=== PATIENT | female | born 1945 | race Caucasian/White ===

== ENCOUNTER 2024-06-22 12:41 | Emergency (ER) | payer MEDICARE, BC, SELFPAY ==
[2024-06-22 12:48] VITALS: BP 140/73
--- NOTE | 2024-06-22 15:32 | CON.NEURO ---
Neuro Assessment/Plan
Assessment
Chronic onset of dysphagia with speech change.
Acute onset of neck pain secondary to subjective neck weakness.
Abnormalities on examination of bilateral tongue fasciculations as well as proximal hyperreflexia, despite preserved strength suggest with its chronicity and reported normal routine EMG study, reported normal acetylcholine receptor antibodies,
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 Differential diagnosis would include spinocerebellar atrophy, unique metabolic disturbances including copper deposition.
Plan
I will facilitate the patient being evaluated by a neuromuscular subspecialist at an academic center on an urgent basis
Patient will require an EMG study of the head, specifically the tongue to determine if the likelihood of a bulbar form of ALS is present
Check blood work for potential metabolic mimics, unlikely
Patient has already been in contact with the speech therapist and I encouraged them to contact that person again for additional mechanics to facilitate swallowing
Check CT of neck to ensure there is no mimics producing the patient's subacute neck discomfort
Will follow as needed
Consultation
Order
Date of Consultation: 06/22/24
Requesting Provider: Emergency department provider
Reason for Consult: Slurred speech
Subjective/Objective
Subjective Data
Date of Service: June 22, 2024
Right-Handed
July 2022 have severe upper respiratory infection infection which lead to vocal loss.
Developed cough intractable 1 year ago (06/2023) then swallowing difficulty as well as chewing difficulty.
Patient presented to a [facility] welfare eligibility interviewer in March 2024 for reporting approximately 6 to 12 (-03/2023) months of a change in voice with slower speech and slurred speech. The patient also reported difficulty with dysphagia during
that timeframe. The patient described also experiencing shortness of breath with activity and a chronic cough. During his examination, the patient was found to have tongue fasciculations.
Speech changes started in 09/2023.
Saw local neurologist who performed blood work and EMG which were 'normal.'
Used pyridostigmine without benefit, had side-effects including leg cramps. Glycopyrrolate previously.
Then to ENT physician who was unable to find a primary neck issue producing patient's symptoms
Unable to tolerate MRI of brain ordered by ENT.
Now having neck issues started in 06/17/2024 posteriorly radiating to tops of head, equally bilaterally posteriorly. In [place], underwent two evaluations in local emergency departments, given ABX and pain-killers. As the patient did not have
adequate control of her discomfort, they returned to [place].
Developed difficulty with lifting arms to comb hair (in the neck) started with neck pain.
Lip twitching started 1 day prior to ED presentation.
Objective Data
Vital Signs
Temp Pulse Resp BP Pulse Ox
36.7 C 100 16 140/73 98
06/22/24 12:48 06/22/24 12:48 06/22/24 12:48 06/22/24 12:48 06/22/24 12:48
Patient Allergies
No Known Allergies Allergy (Verified 06/22/24 12:55)
Review of Systems
-
History Source: Patient and Family
All other systems: Reviewed and negative
EENT: Swallowing Difficulty and Other (chewing is an issue); Negative Blurry Vision
Respiratory: Trouble Breathing
Cardiac: Negative Chest Pain
Abdomen/GI: Negative Incontinence of Stool
Genitourinary: Negative Incontinence
Musculoskeletal: Neck Pain (constant); Negative Back Pain
Neuro: Headache; Negative Dizzy
Physical Exam
-
General: No Apparent Distress and Appears Stated Age
Eyes: OU Absent Papilledema, Round OU, Lafe Conjunctivae and No Ptosis
HEENT: Anicteric and Moist Mucous Membranes
Neck: Full Range of Motion
Respiratory: No Dyspnea
Cardiac: No JVD
GI: Non-distended
Skin: Unremarkable
Extremities: No Clubbing, No Cyanosis and No Edema
Psych: Intact Judgement/Insight
Extended Neurological Exam
Mood & Affect: Mood Unremarkable and Affect Unremarkable
Attention Span & Concentration: Awake, Alert, Interactive and No Difficulty with 2 Step Request
Memory: Unremarkable
Tremor: Hand Tremor Absent and Head Tremor Absent
Speech: Quantity Unremarkable and Other (Nasal); Negative Quality Unremarkable
Cranial Nerve II: Left Eye: Pupillary Reactivity Unremarkable, Pupillary Size Unremarkable and Visual Nino Intact
Cranial Nerve II: Right Eye: Pupillary Reactivity Unremarkable, Pupillary Size Unremarkable and Visual Nino Intact
Cranial Nerves III, IV, : Extraocular Movement: Extraocular Movement Full in all Directions
Cranial Nerve V: Facial Sensation: Facial Sensation Unremarkable to Cold
Cranial Nerve VII: Facial Symmetry: Normal Facial Symmetry
Cranial Nerve VIII: Hearing: Unremarkable Hearing to Normal Conversational Volume
Cranial Nerves IX, X: Palate Movement: Palate Elevation Symmetric
Cranial Nerve XI: Shoulder Shrug: Unremarkable
Cranial Nerve XII: Tongue Protusion: Midline and Other (Frequent multifocal brief tongue fasciculations noted)
Muscle Strength, Overall: Full Throughout and Other (Neck flexor and extensor strength testing mildly limited by pain, may be reduced with regards to extension mildly)
Muscle Bulk & Tone: Bulk Unremarkable and Tone Unremarkable
Pronator Drift: No Drift in Upper Extremities
Deep Tendon Reflexes: Other (Increased in bilateral upper extremities proximally greater than distally; otherwise absent; jaw jerk was not clearly hyperreflexic)
Cold Sensation: Reduced Mildly Distally
Vibration Sensation: Absent Distally
Touch Sensation: Unremarkable
Coordination: [id number] Testing Unremarkable
Babinski Sign: Absent Bilaterally
Data Reviewed
-
Labs: Ordered and Report Reviewed
Reviewed with: Physician, Patient and Family
Old Records: Summarized
Past History
Past History
ED Past Medical History: HTN, Hypercholesterolemia and Other (Dyspnea on exertion)
ED Past Surgical History: Orthopedic (Left knee TKR) and Other (Bilateral cataract extractions)
Social History
Tobacco: Non-smoker
Alcohol: None
Family History
Family History: Other (Reviewed and noncontributory)
[2024-06-22 15:43] VITALS: BMI 31.9
[2024-06-22 15:45] VITALS: BP 137/75
[2024-06-22 15:54] LABS: Hematocrit 37.2 % (37.0-47.0); Hemoglobin 12.8 g/dL (12.0-16.0); Mean Corp Hgb Conc. 34.4 g/dL (33.0-37.0); Mean Corpuscular Hgb 31.1 pg (27.0-31.0); Mean Corpuscular Volume 90.5 fL (81.0-99.0); Mean Platelet Volume 8.8 fL (7.4-10.4); Platelet Count 301 10^3/uL (130-400); Red Blood Cell Count 4.11 10^6/uL (4.20-5.40); Red Cell Dist. Width 12.6 % (11.5-14.5); White Blood Cell Count 8.8 10^3/uL (4.8-10.8)
[2024-06-22 16:00] VITALS: BP 139/92
[2024-06-22 16:09] LABS: ALT (SGPT) 24 U/L (0-35); AST (SGOT) 25 U/L (14-36); Albumin 3.8 g/dl (3.5-5.0); Alkaline Phosphatase 124 U/L (38-126); Blood Urea Nitrogen 14 mg/dl (7-17); Calcium 9.3 mg/dl (8.4-10.2); Carbon Dioxide 32 mmol/L (22-30); Chloride 94 mmol/L (98-107); Estimated Creatinine Clearance 52 ml/min; Glucose 113 mg/dl (70-99); Magnesium 2.2 mg/dl (1.6-2.3); Potassium 3.5 mmol/L (3.5-5.1); Sodium 133 mmol/L (135-145); Total Bilirubin 0.7 mg/dl (0.2-1.3); Total Protein 7.1 g/dl (6.3-8.2); eGFR > 60.00
--- NOTE | 2024-06-22 16:10 | ED.GENMED ---
History of Present Illness
General
Chief Complaint: Musculo-Skeletal Complaint
Source: patient and family
Exam Limitations: none
Time Seen by Provider: 06/22/24 14:46
Nursing documentation reviewed up to this point in time: agreed with
History of Present Illness
History of Present Illness:
Patient with history of hypertension and hypercholesterolemia, presents to ED secondary to 5-day history of atraumatic neck pain, radiating up to her head. In addition, patient reports worsening slurred speech and difficulty swallowing, but she has
been experience for over 1 year. Patient has been evaluated by an outpatient neurologist with diagnosis of possible myasthenia gravis. Patient was prescribed medications by her neurologist, which she had to discontinue due to side effects. Denies
blurry vision. Denies dizziness. Denies loss of sensation or difficulty with ambulation. However, patient does have difficulty raising her arm above her shoulder due to pain.
Past History
Past History
ED Past Medical History: HTN, Hypercholesterolemia and Other (Dyspnea on exertion)
ED Past Surgical History: Orthopedic (Left knee TKR) and Other (Bilateral cataract extractions)
Social History
Tobacco: Non-smoker
Alcohol: None
Family History
Family History: Other (Reviewed and noncontributory)
Review of Systems
Review of Systems
Allergies reviewed?: Yes
All Other Systems: ROS reviewed and negative except as documented in HPI and ROS
Constitutional: Reports no symptoms
EENT: Reports no symptoms
Respiratory: Reports no symptoms
Cardiac: Reports no symptoms
ABD/GI: Reports no symptoms
Musculoskeletal: Reports neck pain
Skin: Reports no symptoms
Neurological: Reports headache and other (Slurred speech and difficulty swallowing)
Phy Exam
Physical Exam
Physical Exam:
Physical Exam
General: no apparent distress, not acutely ill. afebrile
Head: nc/at. eomi
Neck: supple. no meningeal signs.
Heart: s1/s2 regular rate and rhythm, no murmur. equal radial pulses.
Lungs: no acute respiratory distress. clear bilaterally
Abdomen: normal bowel sounds. not tender.
Neuro: alert and oriented x 3. no focal neurological deficits. slurred speech noted.
Skin: no rash
Psychiatric: well kept. interactive and cooperative
Extremities: no edema. no calf tenderness.
Course
Orders/Labs/Results
Orders:
Orders
06/22/24 15:39
Electrocardiogram (*1) Urgent
Reason for Study: TIA/Stroke
EKG- Treatment ONCE
06/22/24 15:42
C-Reactive Protein Urgent
Comment: ADD ON
Complete Blood Count/No Diff Urgent
Comprehensive Metabolic Panel Urgent
Erythrocyte Sed Rate Urgent
Comment: ADD ON
Magnesium Urgent
TSH Reflex To Free T4 Urgent
Comment: ADD ON
Vitamin B12 Urgent
Comment: ADD ON
06/22/24 16:30
Ketorolac [Toradol] 15 mg IV NOW STA
06/22/24 16:36
Add On- LAB Urgent
Tests Added?: zinc, vit B12, TSH free to T4, erthrocyte sed rate, copper, CRP
06/22/24 16:37
Add On- LAB Urgent
Tests Added?: Sadia IgG reflex to hep-2 (s)
06/22/24 16:43
CT Neck W/o Iv Contrast Routine
Comment:
Reason For Exam: Acute onset severe neck pain posteriorly
06/22/24 16:55
Ondansetron Injectable [Zofran] 4 mg IV NOW STA
06/22/24 17:24
Copper, Serum [S] Routine
Zinc [S] Routine
06/22/24 20:25
Ketorolac [Toradol] 10 mg PO NOW STA
Abnormal Lab Results
06/22/24
15:42
RBC 4.11 L 10^6/uL
(4.20-5.40)
MCH 31.1 H pg
(27.0-31.0)
ESR 73 H mm/hour
(0-20)
Sodium 133 L mmol/L
(135-145)
Chloride 94 L mmol/L
(98-107)
Carbon Dioxide 32 H mmol/L
(22-30)
Glucose 113 H mg/dl
(70-99)
C-Reactive Protein 242.20 H mg/L
(0.0-10.00)
06/22/24 15:42
06/22/24 15:42
Vital Signs
Initial and Last Documented VS:
Initial Vital Signs
Temp Pulse Resp BP Pulse Ox
98.0 F 100 16 140/73 98
06/22/24 12:48 06/22/24 12:48 06/22/24 12:48 06/22/24 12:48 06/22/24 12:48
Last Documented Vital Signs
Temp Pulse Resp BP Pulse Ox
98.0 F 81 13 134/63 94
06/22/24 12:48 06/22/24 19:00 06/22/24 18:45 06/22/24 17:00 06/22/24 18:45
MDM/Problems Addressed
MDM/Problems Addressed:
Patient evaluated in ED by Dr. Enriquez, neurology. There is clinical consideration for potential ALS. As such, recommends that patient follows up with neuromuscular specialist at [facility]. In the meantime, CT neck ordered
by Dr. Enriquez, without any acute findings. In addition, patient reports significant improvement in her symptoms after administration of Toradol along with IV fluids. Patient and family feel comfortable going home at this time, with continual
outpatient evaluation.
*Critical Care Note
Total Time (30-74mins, 75-104mins- exclusive of procedures): Not Applicable
ED Attending Note
-
Portions of this chart may have been created with voice recognition software.� Occasional wrong word or��sound alike� substitutions may have occurred due to the inherent limitations of voice recognition software.
Discharge Plan
Departure
Patient Disposition: Home (Routine Discharge)
Date of Disposition: 06/22/24
Time of Disposition: 20:15
Patient with high blood pressure during this ER visit?: Yes
Condition: Good
Discharge Problem:
Neck pain, Slurred speech
Instructions: Neck pain - ED discharge instructions
Prescriptions:
New
ketorolac 10 mg tablet
10 mg PO Q8H PRN (Reason: Pain) Qty: 14 0RF
Rx Instructions:
maximum total duration of 5 days from all oral, intranasal, or parenteral formulations
Referrals:
Prateek Roberts DO [Family Provider] -
Activity Restrictions/Additional Instructions:
As discussed, please follow-up with neuromuscular specialist at [facility] for further evaluation and treatment. Your prescription has been sent electronically to [facility] pharmacy in [place].
Interventions
Interventions:
*Risk Screen - Suicide Last Done: 06/22/24 12:48
*General Assessment Last Done: 06/22/24 15:43
*Neglect/Abuse Screening Last Done: 06/22/24 12:48
ED- Fall Risk Assessment Last Done: 06/22/24 15:43
*ED COVID-19 Vaccine History Last Done: 06/22/24 15:43
*Nursing Disposition Last Done: 06/22/24 20:44
ED-Musculoskeletal Assessment Last Done: 06/22/24 15:43
Discharge Date and Time
Discharge Date/Time: 06/22/24 20:45
Print Language: AMHARIC
[2024-06-22] MEDS: TORADOL 15 MG IV (16:50)
[2024-06-22] MEDS: ZOFRAN 4 MG IV (16:57)
[2024-06-22 17:00] VITALS: BP 134/63
[2024-06-22 18:24] LABS: Erythrocyte Sed Rate 73 mm/hour (0-20)
[2024-06-22 18:35] LABS: Vitamin B12 396 pg/ml (239-931)
[2024-06-22] MEDS: TORADOL 10 MG PO (20:37)
[2024-06-22 21:25] LABS: TSH Reflex To Free T4 0.77 uIU/ml (0.47-4.68)
[2024-06-25 05:51] LABS: Copper, Serum 146.8 ug/dL (80.0-155.0)
[2024-06-25 12:10] LABS: ANA, HEp-2, IgG Detected (<1:80)
[2024-06-26 09:16] LABS: ANA Pattern Homogeneous
== END 2024-06-22 20:45 | disposition home or self-care (01) ==
LOC: EMR 12:41
PROVIDERS: EMERGENCY PHYSICIAN Emergency Medicine; FAMILY PHYSICIAN Family Medicine; OTHER PHYSICIAN Psychiatry & Neurology Neurology
DX: M54.2 Cervicalgia (principal); R47.81 Slurred speech; I10 Essential (primary) hypertension; E78.00 Pure hypercholesterolemia, unspecified
CPT/HCPCS: 99285; 96374; 96375; 70490; 80053; 82525; 82607; 83735; 84443; 84630; 85027; 85652; 86039; 86140; 93005